=== PATIENT | male | born 1935 | race Caucasian/White ===

== ENCOUNTER → 2017-04-09 | Day surgery (SDC) | payer OTHER ==
[~2017-04-09] MED LIST: CARBIDOPA-LEVO1 EAC1 PO; CLOPIDOGREL75 MG PO; COREG6.25 MG PO; HYDROCODON-ACE1 EAC5 PO; KCL PO; LANTUS100 U/ML SUBQ; LASIX PO; LISINOPRIL2.5 MG PO; PHENERGAN25 MG PO; XARELTO20 MG PO
--- NOTE | ~2017-04-09 | OR ---
Unit #: [id number] #: [id number] Patient: LEONEL OCAMPO [id number] [address] [place], [place] [address] [id number] MR#: [id number] NAME: LEONEL OCAMPO ROOM: Date of Procedure: 04/09/2017 Admission Date: 04/09/2017 Surgeon: Wil Khan M.D. : 1935 Attending Physician: Wil Khan M.D. Primary Care Physician: Dc Piña M.D. OPERATIVE REPORT PREOPERATIVE DIAGNOSES Back pain, radiculopathy, spinal stenosis, spondylolisthesis, degenerative disk disease. POSTOPERATIVE DIAGNOSES Back pain, radiculopathy, spinal stenosis, spondylolisthesis, degenerative disk disease. PROCEDURE PERFORMED Lumbar epidural steroid injection with fluoroscopic guidance for needle localization. INDICATIONS FOR PROCEDURE The patient is an 81-year-old male with worsening back and bilateral lower extremity pains due to significant degenerative change. He had an anterolisthesis at L4-L5 level. He is not a surgical candidate. He did well with epidural steroids in the past with about 3-1/2 months of improvement with a single injection. Based on a good response, pathology, and symptomatology, we are going to proceed with a repeat injection today. DESCRIPTION OF PROCEDURE The patient was placed in the seated position. Standard monitors were applied. Sterile prep and drape of the lumbar area was performed. The skin then to the right of midline was localized with 1% lidocaine. An 18-gauge Hustead needle was then advanced via right paramedian approach and loss of resistance technique in toward the epidural space. The patient did not complain of any pain or paresthesia during needle advancement. After confirming proper positioning with fluoroscopy and radiographic contrast, dose of 80 mg of Depo-Medrol and 4 mL of 0.125% bupivacaine were deposited. The patient tolerated the procedure otherwise well and was discharged to the recovery room in stable condition. Dictated by... Wil Khan M.D. LHP/modl TD: 04/09/2017 16:06 JOB #: [id number] Unit #: [id number] #: [id number] Patient: LEONEL OCAMPO OPERATIVE REPORT Page 1 of 1 X Wil Khan MD X PROCEDURE OPERATIVE NOTE
== END | disposition home or self-care (01) ==
LOC: CCSC 11:14
DX: M51.16 Intervertebral disc disorders with radiculopathy, lumbar region (principal); M43.16 Spondylolisthesis, lumbar region; M48.06 Spinal stenosis, lumbar region; I10 Essential (primary) hypertension; E11.9 Type 2 diabetes mellitus without complications; I25.2 Old myocardial infarction; G20 Parkinson's disease; Z79.891 Long term (current) use of opiate analgesic; Z79.4 Long term (current) use of insulin; Z79.899 Other long term (current) drug therapy
CPT/HCPCS: 82947; J1040; J2250